=== PATIENT | female | born 2005 | race Caucasian/White ===

== ENCOUNTER → 2025-02-28 | Outpatient (REF) | payer OTHER, MEDICAID ==
[2025-03-01 19:33] LABS: Trichomonas vaginalis (AMP) POSITIVE (NEGATIVE)
[2025-03-01 20:11] LABS: GC DNA AMPLIFICATION NEGATIVE (NEGATIVE)
== END ==
LOC: M LAB REF 16:58
PROVIDERS: ATTEND Physician Assistant
DX: N89.8 Other specified noninflammatory disorders of vagina (principal)

== ENCOUNTER 2025-09-28 00:29 | Emergency (ER) | payer OTHER, MEDICAID ==
[~2025-09-28] VITALS: Ht 162.6 cm; Wt 100.0 kg
[2025-09-28 02:12] VITALS: BP 131/71; TEMP 97; O2SAT 97
== END 2025-09-28 02:13 | disposition home or self-care (01) ==
LOC: M ED 00:29
DX: S69.92XA Unspecified injury of left wrist, hand and finger(s), initial encounter (principal); S80.11XA Contusion of right lower leg, initial encounter; S80.12XA Contusion of left lower leg, initial encounter; W19.XXXA Unspecified fall, initial encounter; Y92.9 Unspecified place or not applicable; Y93.9 Activity, unspecified; Y99.0 Civilian activity done for income or pay

== ENCOUNTER 2025-11-18 17:19 | Emergency (ER) | payer OTHER, MEDICAID ==
[~2025-11-18] VITALS: Ht 162.6 cm; Wt 111.0 kg
[2025-11-18] MEDS: ACETAMINOPHEN 500 MG TAB PO ONE (17:41)
[2025-11-18 18:02] LABS: SOFIA COVID ANTIGEN NEGATIVE (NEGATIVE)
[2025-11-18 19:57] VITALS: BP 138/78; TEMP 99.4; O2SAT 98
== END 2025-11-18 19:57 | disposition home or self-care (01) ==
LOC: M ED 17:19
DX: J09.X2 Influenza due to identified novel influenza A virus with other respiratory manifestations (principal)